=== PATIENT | male | born 1945 | race Caucasian/White ===

== ENCOUNTER 2017-04-03 07:31 | Inpatient (IN) | payer MEDICARE, OTHER ==
[2017-03-22 13:34] LABS: BASOPHILS 0.8 %; BASOPHILS ABSOLUTE 0.03 10/3/uL (0.0-0.16); EOSINOPHILS 2.1 %; EOSINOPHILS ABSOLUTE 0.08 10/3/uL (0.0-0.53); HEMATOCRIT 43.1 % (40.0-51.0); HEMOGLOBIN 14.5 g/dL (13.6-17.8); LYMPHOCYTES ABSOLUTE 1.24 10/3/uL (0.67-4.30); MEAN CORPUS HGB CONC 33.6 g/dL (32.0-36.0); MONOCYTES 10.6 %; MONOCYTES ABSOLUTE 0.41 10/3/uL (0.21-1.20); NEUTROPHILS 54.5 %; NEUTROPHILS ABSOLUTE 2.12 10/3/uL (2.02-8.40); PLATELET COUNT 224 10/3/uL (150-400); RBC DISTRIBUTION WIDTH 15.4 % (12.0-16.0); RED CELL COUNT 4.67 10/6/uL (4.7-6.1); WHITE BLOOD CELLS 3.9 10/3/uL (4.5-10.5)
[2017-03-22 13:37] LABS: MANUAL DIFF NO %; MEAN CORPUSCULAR VOLUME 92.3 fL (80-100)
[2017-03-22 13:40] LABS: INTERNATIONAL NORMAL RATI 1.2 UNITS (-); PARTIAL THROMBO TIME 33.1 SEC (22.5-37.2); PROTIME (NOT ORD) 15.2 SEC (12.0-14.5)
[2017-03-22 13:47] LABS: A/G RATIO 1.1 (0.7-1.9); ALBUMIN 3.7 G/DL (3.5-5.0); BUN (BLOOD UREA NITROGEN) 20 MG/DL (6-23); CALCIUM, SERUM 8.9 MG/DL (8.5-10.4); CHLORIDE, SERUM 104 MMOL/L (96-112); CO2 (CARBON DIOXIDE) 29 MMOL/L (24-34); CREATININE 0.88 MG/DL (0.70-1.30); GFR AFRICAN AMERICAN 100 ML/MIN (>=60); GFR NON AFRICAN AMERICAN 86 ML/MIN (>=60); GLOBULIN 3.5 G/DL (2.5-4.1); GLUCOSE, SERUM 95 MG/DL (60-99); POTASSIUM, SERUM 4.5 MMOL/L (3.5-5.3); SGOT(AST) 19 U/L (5-40); SGPT(ALT) 25 U/L (5-65); SODIUM, SERUM 138 MMOL/L (135-148); TOTAL BILIRUBIN 0.4 MG/DL (0-1.2); TOTAL PROTEIN 7.2 G/DL (6.0-8.5)
[2017-03-22 13:48] LABS: ALKALINE PHOSPHATASE 68 U/L (45-117)
[2017-03-22 14:06] LABS: ASCORBIC ACID (UR NOT ORDER) NEG (NEG); BILIRUBIN, URINE NEGATIVE (NEG); KETONE, URINE NEGATIVE (NEG); LEUKOCYTE ESTERASE(NOT OR NEG (NEG); WBC (NOT ORDERED) (RFLEX) < 1 (0-5)
[~2017-04-03] VITALS: Ht 193 cm; Wt 96.8 kg
--- NOTE | ~2017-04-03 | OP ---
Record Of Operation [facility] [address] [place]. [address] NAME: GENI WONG : 45 STATUS : ADM IN [facility]#: [id number] AGE: 71 ADM/REG DATE : 04/03/17 MR#: [id number] REPORT SERV DATE: 04/03/17 DICTATED BY: MONTANA BEAL DATE: 04/03/17 REPORT STATUS : Draft TRANSCRIBED BY: MODL DATE: 04/03/17 DATE OF PROCEDURE: 04/03/2017 PREOPERATIVE DIAGNOSIS: Severe valgus osteoarthritis of the right knee. POSTOPERATIVE DIAGNOSIS: Severe valgus osteoarthritis of the right knee. PROCEDURE: Right total knee arthroplasty. ZIGZAG TUNNEL ELASTIC OPERATOR: Rubens [place]. ANESTHESIA: General endotracheal. ESTIMATED BLOOD LOSS: 100 mL. COMPLICATIONS: None. DRAINS: ConstaVac x1. TOURNIQUET TIME: Approximately 75 minutes. IMPLANTS: Salomon and Salomon Attune size 8 posterior stabilized right femoral component, size 9 modular tibial tray, with a 7 mm thick posterior stabilized tibial polyethylene insert, the patella was a 41 mm patella. All components were cemented in place with [employer] Simplex bead set bone cement. INDICATIONS FOR SURGERY: Mr. Wong is a 71-year-old male with severe valgus osteoarthritis of his right knee. He has had unremitting pain, which has been refractory to medical management. He presents requesting the above-mentioned procedure. Risks of the procedure as detailed in the history and physical, and operative consent were discussed prior to proceeding. He fully understood and has requested to proceed. DESCRIPTION OF PROCEDURE: The patient was brought to the operating room and after induction of anesthesia, was positioned in the supine position. All appropriate pressure points were padded. The operative knee was then prepped and draped in the usual sterile fashion. Time out was performed confirming the appropriate surgical side and site. The leg was exsanguinated with an Kevin wrap and the tourniquet inflated to 350 mmHg pressure. A medial parapatellar approach to the knee was performed. The skin and cutaneous tissues were incised sharply in the midline with a #10 blade. Electrocautery was used as needed to maintain hemostasis. The retinaculum was divided and the extensor mechanism exposed. A median parapatellar arthrotomy was carried out. The medial tibia was exposed subperiosteally and the patellofemoral ligaments divided. The patella was then subluxated laterally and the knee carefully flexed. The knee was d brided of all osteophytes, meniscal remnants in the anterior and posterior cruciate ligaments. Record Of Operation [facility] [address] [place]. [address] NAME: GENI WONG : 45 STATUS : ADM IN PAT#: [id number] AGE: 71 ADM/REG DATE : 04/03/17 MR#: [id number] REPORT SERV DATE: 04/03/17 DICTATED BY: MONTANA BEAL DATE: 04/03/17 REPORT STATUS : Draft TRANSCRIBED BY: MARION DATE: 04/03/17 Attention was then turned to the distal femur. The intramedullary guide was set at 5 degrees of valgus and secured to the distal femur. The distal femoral resection was then carried out. The femur was then sized to the appropriate block as determined intraoperatively and from templating. The AP cutting block was secured in such a way as to create matched distal and posterior femoral resections in the appropriate rotation. The anterior and posterior femoral cuts were made, chamfer cuts were completed and the box was created for the posterior stabilized femoral component. Attention was then turned to the tibia. The extramedullary alignment guide was set a neutral varus/valgus to match the patient's modoc posterior tibial slope. The tibia was resected, removing 2 to 3 mm, from the most affected side. The tibial fragment was then removed. Attention was then turned to the posterior aspect of the knee and any remaining posterior femoral osteophytes or meniscal remnants were d brided. The patella was then everted and a uniform resection created taking the thickness of the planned patellar component. The cut was checked with a caliper to be sure of the appropriate resection level. The patella was then finally sized and three holes drilled for an oval domed three peg patella. At this point, the varus/valgus alignment of the knee was accessed. The appropriate releases were performed to balance the knee. A trial reduction was performed. The knee came to a full extension. There was 2 to 3 mm of opening to both varus and valgus stress at 30 and 90 degrees of flexion and normal patellar tracking. At this point, all trial components were removed and the final tibial preparation performed. The bony surfaces were copiously irrigated with normal saline and dried and the final components cemented in place. Once the cement had fully cured, the knee was carefully inspected and all extruded cement fragments were removed. A trial reduction was once again performed. Range of motion and stability of the knee were unchanged. The true tibial insert was then impacted in the clean tibial tray. A drain was placed deep through the arthrotomy and the knee was once again irrigated with pulsatile lavage normal saline. The arthrotomy was repaired using interrupted 1-0 Vicryl suture in a [id number] fashion. The subcutaneous tissues were approximated with interrupted 2-0 Vicryl suture, the skin stapled. A sterile dressing was applied. The tourniquet was deflated and the patient was taken to the Recovery Room in stable condition. POSTOP PLAN: The patient is to be weightbearing as tolerated with physical therapy to be started per total knee arthroplasty protocol. The patient will be on Coumadin and mechanical deep venous thrombosis prophylaxis. SCOTT/MARION Montana Beal M.D. Record Of Operation [address] [address] NAME: GENI WONG : 45 STATUS : ADM IN [facility]#: [id number] AGE: 71 ADM/REG DATE : 04/03/17 MR#: [id number] REPORT SERV DATE: 04/03/17 DICTATED BY: MONTANA BEAL DATE: 04/03/17 REPORT STATUS : Draft TRANSCRIBED BY: MARION DATE: 04/03/17 / [id number] CC: Montana Beal M.D.
[~2017-04-03 07:31] MED LIST: BEN25 PO; CARDCD180 PO; CLEOCIN300 MG PO; CYMBALTA60 PO; CYTOXAN1 GM IV; DIL2TAB PO; DILT-XR180 MG PO; FIBERCON PO; FLEX PO; IVIGPOW IV; K500 PO; KLONO1 PO; LOP50 PO; MAGOX4 PO; MELATONIN5 M1 PO; MOBIC15 MG PO; NEUR300 PO; NEUR400 PO; NEUR800 PO; NOR25 PO; NORCO1 TA2 PO; OXYCON10 PO; PR25 PO; SEPTRA DS1 TAB PO; SIMPLY SLEEP25 MG PO; SUPER B COMP PO; T PO; VITAMIN B-121000 MC1 SL; VITAMIN D1000 UNI1 PO; VITC500 PO; XARELTO10 MG PO; XARELTO20 MG PO
[2017-04-04 06:06] LABS: HEMATOCRIT 38.9 % (40.0-51.0); HEMOGLOBIN 12.8 g/dL (13.6-17.8)
[2017-04-04 06:12] LABS: PROTIME (NOT ORD) 13.1 SEC (12.0-14.5)
[2017-04-04 06:22] LABS: BUN (BLOOD UREA NITROGEN) 20 MG/DL (6-23); CALCIUM, SERUM 8.9 MG/DL (8.5-10.4); CHLORIDE, SERUM 104 MMOL/L (96-112); CO2 (CARBON DIOXIDE) 27 MMOL/L (24-34); CREATININE 0.89 MG/DL (0.70-1.30); GFR AFRICAN AMERICAN 100 ML/MIN (>=60); GFR NON AFRICAN AMERICAN 86 ML/MIN (>=60); POTASSIUM, SERUM 4.8 MMOL/L (3.5-5.3); SODIUM, SERUM 138 MMOL/L (135-148)
[2017-04-04 06:23] LABS: GLUCOSE, SERUM 170 MG/DL (60-99)
[2017-04-05 06:35] LABS: INTERNATIONAL NORMAL RATI 1.2 UNITS (-); PROTIME (NOT ORD) 14.7 SEC (12.0-14.5)
[2017-04-05 06:50] LABS: HEMATOCRIT 38.2 % (40.0-51.0); HEMOGLOBIN 12.5 g/dL (13.6-17.8)
[2017-04-05 21:45] LABS: BASOPHILS 0.1 %; BASOPHILS ABSOLUTE 0.01 10/3/uL (0.0-0.16); EOSINOPHILS 1.4 %; EOSINOPHILS ABSOLUTE 0.11 10/3/uL (0.0-0.53); HEMATOCRIT 36.8 % (40.0-51.0); IMMATURE GRANULOCYTES 0.2 %; IMMATURE GRANULOCYTES ABSOLUTE 0.02 10/3/uL (0.0-0.11); LYMPHOCYTES 19.7 %; LYMPHOCYTES ABSOLUTE 1.59 10/3/uL (0.67-4.30); MEAN CORPUS HGB CONC 32.6 g/dL (32.0-36.0); MEAN CORPUSCULAR HEMOGLOB 30.2 pg (26.0-34.0); MEAN CORPUSCULAR VOLUME 92.5 fL (80-100); MEAN PLATELET VOLUME 10.5 fL (9.2-13.0); MONOCYTES ABSOLUTE 1.37 10/3/uL (0.21-1.20); NEUTROPHILS 61.6 %; NEUTROPHILS ABSOLUTE 4.97 10/3/uL (2.02-8.40); PLATELET COUNT 229 10/3/uL (150-400); RED CELL COUNT 3.98 10/6/uL (4.7-6.1); WHITE BLOOD CELLS 8.1 10/3/uL (4.5-10.5)
[2017-04-05 21:46] LABS: MANUAL DIFF NO %
[2017-04-05 22:22] LABS: SED RATE 56 MM/HR (0-15)
[2017-04-06 05:38] LABS: HEMATOCRIT 35.1 % (40.0-51.0); HEMOGLOBIN 11.4 g/dL (13.6-17.8)
[2017-04-06 05:45] LABS: INTERNATIONAL NORMAL RATI 2.3 UNITS (-)
[2017-04-06 05:46] LABS: PROTIME (NOT ORD) 24.9 SEC (12.0-14.5)
[2017-04-06] MEDS ORDERED: ULTRAM50 PO (11:50)
[2017-04-06] MEDS ORDERED: DIL4TAB PO (11:51)
== END 2017-04-06 15:26 | disposition home or self-care (01) | DRG 470 ==
LOC: ENRESERVTM → ENRESERVDT → ENRESERV → SDC/OF 07:31 → 3JRC 07:31 → PACU 12:34 → 3JRC 13:14
PROVIDERS: Specialist
PROC: 3E0T3CZ (ICD-10-PCS; 2017-04-03)
PROC: 0SRC0J9 Replacement of Right Knee Joint with Synthetic Substitute, Cemented, Open Approach (ICD-10-PCS; principal; 2017-04-03 09:15)
DX: M17.11 Unilateral primary osteoarthritis, right knee (principal); G61.81 Chronic inflammatory demyelinating polyneuritis; I48.2 Chronic atrial fibrillation; G62.9 Polyneuropathy, unspecified; Z88.5 Allergy status to narcotic agent; F32.9 Major depressive disorder, single episode, unspecified; F41.9 Anxiety disorder, unspecified; Z90.49 Acquired absence of other specified parts of digestive tract; Z98.890 Other specified postprocedural states; Z79.899 Other long term (current) drug therapy
CPT/HCPCS: 36415; 71020; 80048; 80053; 81001; 83036; 85014; 85018; 85025; 85610; 85652; 85730; 86140; 86850; 86900; 86901; 87641; 88305; 88311; 93005; 97110-GP; 97116-GP; 97150-GP; 97161-GP; 97165-GO; A9270-GY; C1776; G8978-CK-GP; G8979-CI-GP; J0690; J1170; J1885; J2250; J2405; J2795; J3010